=== PATIENT | male | born 1985 | race Caucasian/White ===

== ENCOUNTER 2025-04-10 19:52 | Emergency (ER) | payer OTHER ==
[~2025-04-10] VITALS: Ht 182.9 cm; Wt 86.2 kg
[2025-04-10 20:01] VITALS: PULSE 77; RESP 18; TEMP 97.6
[2025-04-10] MEDS ORDERED: ASPIRIN 81 MG CHEW TAB ONE (21:01)
[2025-04-10] MEDS: ASPIRIN 81 MG CHEW TAB PO ONE (21:14)
[2025-04-10 23:05] VITALS: BP 123/65; PULSE 72; RESP 18; TEMP 98; O2SAT 99
== END 2025-04-10 23:05 | disposition home or self-care (01) ==
LOC: FSED 20:14
DX: R06.02 Shortness of breath (principal); R07.89 Other chest pain
CPT/HCPCS: 71046; 80053; 84484; 85025; 93005; 99283